=== PATIENT | female | born 1990 | race Caucasian/White ===

== ENCOUNTER 2018-03-04 17:41 | Emergency (ER) | payer SELFPAY ==
[~2018-03-04] VITALS: Ht 162.6 cm; Wt 55.0 kg
[2018-03-04 20:20] VITALS: BP 106/37
== END 2018-03-04 20:28 | disposition home or self-care (01) ==
LOC: ER 17:41
DX: T74.21XA Adult sexual abuse, confirmed, initial encounter (principal); Y92.89 Other specified places as the place of occurrence of the external cause
CPT/HCPCS: 99283